=== PATIENT | male | born 1975 | race Caucasian/White ===

== ENCOUNTER 2024-01-28 15:15 | Emergency (ER) | payer OTHER, SELFPAY ==
[2024-01-28 15:25] VITALS: BP 130/91
--- NOTE | 2024-01-28 15:28 | ED.GENMED ---
ED Provider Triage
<Justyna Dickson PA-C - Last Filed: 01/28/24 15:31>
-
Patient seen by provider in Triage?: Seen in Triage
Attestation: A medical screening examination has been initiated by a qualified medical provider. Based on the assessment performed at this time, it has been determined that an emergent medical condition may exist and the patient has been informed
that further medical evaluation and possible additional diagnostic testing may be needed.
HPI: 48yoM here with L sided chest pain x several days. Feels like a funny feeling. Also having L arm numbness. Abnormal EKG at urgent care and sent to ED via ambulance.
GENERAL: Alert , in no apparent distress
EYE: No visual abnormalities.
NECK: Trachea midline
ENT: No visible abnormalities.
LUNGS: No acute respiratory distress
NEUROLOGICAL: Alert and oriented
SKIN: Skin intact. No visible changes.
MUSCULOSKELETAL: Moving extremities normally
PSYCH: Normal and appropriate interaction.
This is a medical evaluation conducted in person to initiate diagnostic evaluation and provide initial therapeutics. Please see further documentation by the treating clinician.
Cardiac labs, EKG, and CXR ordered.
History of Present Illness
<Justyna Dickson PA-C - Last Filed: 01/28/24 15:31>
General
Chief Complaint: Chest Pain
Time Seen by Provider: 01/28/24 18:52
<Sanford Orozco DO - Last Filed: 01/29/24 00:39>
General
Source: patient and records
Exam Limitations: none
Nursing documentation reviewed up to this point in time: agreed with
History of Present Illness
History of Present Illness:
Patient is a 48-year-old male who presents to the emergency department complaining of left-sided chest ache that started 3 nights ago has been intermittent. Patient states it feels like an ache in his left chest and his back then became tight and
he noticed his left upper extremity was following sleep. It does not seem to follow any particular pattern. Patient has continued to exercise get his heart rate up to 1 40-1 60 and has had no symptoms. Patient walks 2 miles and sprints up a hill
at the end and again had no symptoms. Patient was in [place] 1 week ago for 3 days and came back 3 days ago. Patient denies fever or chills, nasal congestion, sore throat or cough. Patient had COVID 2 months ago. Patient denies any palpitations
or shortness of breath. Patient denies any diaphoresis. Patient states that occurred after lunch today and he felt the same way so he went to urgent care who did an EKG and then called the ambulance saying his EKG was abnormal. Patient felt
somewhat tender in the midepigastric region but denies any nausea, vomiting, diarrhea, melena or hematochezia. Patient states he was drinking somewhat excessively while in [place]. Patient denies history of hypertension, diabetes or elevated
cholesterol. Patient is a lifelong non-smoker. Patient's father had an OH at 70 but smoked and had other medical issues. Patient is very active and has not had any exertional symptoms.
Past History
<Justyna Dickson PA-C - Last Filed: 01/28/24 15:31>
Past History
ED Past Medical History: Other (Tongue mass with lymph node dissection)
Social History
Tobacco: Non-smoker
<Sanford Orozco DO - Last Filed: 01/29/24 00:39>
Past History
ED Past Medical History: Negative HTN, Hypercholesterolemia, IDDM or NIDDM
Family History
Family History: CAD; Negative Early CAD
Review of Systems
<Sanford Orozco DO - Last Filed: 01/29/24 00:39>
Review of Systems
All Other Systems: ROS reviewed and negative except as documented in HPI and ROS
Constitutional: Reports no symptoms
EENT: Reports no symptoms
Respiratory: Reports no symptoms
Cardiac: Reports chest pain; Denies diaphoresis, palpitations or syncope
ABD/GI: Reports abdominal pain; Denies nausea, vomiting, diarrhea, constipated, bloody stools, black stools or anorexia
: Reports no symptoms
Musculoskeletal: Reports back pain
Skin: Reports no symptoms
Neurological: Reports no symptoms
Hematologic/Lymphatic: Reports no symptoms
Psychiatric: Reports no symptoms
Phy Exam
<DO Arlene Thomas Last Filed: 01/29/24 00:39>
Physical Exam
Physical Exam:
Physical Exam
General: No apparent distress, alert and appropriate, well nourished, well hydrated
HENT: Normocephalic, supple with no lymphadenopathy, no thyromegaly
Eyes: Clear sclera, conjuctiva without injection
Heart: Regular rhythm and rate. No S3, S4. No murmur. No NVD, bruit
Lungs: No respiratory distress, no stridor, lung sounds clear and equal bilaterally, chest wall symmetrical and nontender. Left upper back pain is reproducible tenderness with movement.
Abdomen: Soft, nontender, no organomegaly, no CVA tenderness, BS good
Neuro: Alert and oriented x 3, CN II - XII intact, no motor focality, no cerebellar dysfunction
Skin: no rash
Psychiatric: well kept. interactive and cooperative
Extremities: No edema, cyanosis, tenderness, Good and equal peripheral pulses.
Scores
<Sanford Orozco DO - Last Filed: 01/29/24 00:39>
Heart Score for Chest Pain Patients
STEMI patient?: No
History: Slightly or Non-Suspicious
ECG: Normal
Age: >45 - <65 years
Risk Factors: No Risk Factors
Troponin: </= Normal Limit
Heart Score for Chest Pain Patients: 1
Heart Score Risk: 2.5% MACE over next 6 weeks
Course
<Justyna Dickson PA-C - Last Filed: 01/28/24 15:31>
Orders/Labs/Results
Orders:
Orders
01/28/24 15:17
Electrocardiogram (*1) Urgent
Reason for Study: Chest Pain
EKG- Treatment ONCE
01/28/24 15:31
CR Chest - 2 Views Urgent
Comment:
Reason For Exam: CP
01/28/24 16:36
CMP [Comprehensive Metabolic Panel] Urgent
Complete Blood Count/With Diff Urgent
Troponin I Urgent
Abnormal Lab Results
01/28/24
16:36
Absolute Neuts (auto) 6.9 H 10^3/uL
(1.4-6.5)
Neutrophils % 77.4 H %
(42.2-75.2)
Lymphocytes % 16.1 L %
(20.5-51.1)
BUN 23 H mg/dl
(9-20)
Glucose 103 H mg/dl
(70-99)
01/28/24 16:36
01/28/24 16:36
Vital Signs
Initial and Last Documented VS:
Initial Vital Signs
Temp Pulse Resp BP Pulse Ox
98.6 F 88 18 130/91 98
01/28/24 15:25 01/28/24 15:25 01/28/24 15:25 01/28/24 15:25 01/28/24 15:25
Last Documented Vital Signs
Temp Pulse Resp BP Pulse Ox
98.6 F 78 17 130/91 97
01/28/24 15:25 01/28/24 18:30 01/28/24 18:30 01/28/24 15:25 01/28/24 18:30
<Sanford Orozco DO - Last Filed: 01/29/24 00:39>
Orders/Labs/Results
Orders:
Orders
01/28/24 15:17
Electrocardiogram (*1) Urgent
Reason for Study: Chest Pain
EKG- Treatment ONCE
01/28/24 15:31
CR Chest - 2 Views Urgent
Comment:
Reason For Exam: CP
01/28/24 16:36
CMP [Comprehensive Metabolic Panel] Urgent
Complete Blood Count/With Diff Urgent
Troponin I Urgent
Abnormal Lab Results
01/28/24
16:36
Absolute Neuts (auto) 6.9 H 10^3/uL
(1.4-6.5)
Neutrophils % 77.4 H %
(42.2-75.2)
Lymphocytes % 16.1 L %
(20.5-51.1)
BUN 23 H mg/dl
(9-20)
Glucose 103 H mg/dl
(70-99)
01/28/24 16:36
01/28/24 16:36
Vital Signs
Initial and Last Documented VS:
Initial Vital Signs
Temp Pulse Resp BP Pulse Ox
98.6 F 88 18 130/91 98
01/28/24 15:25 01/28/24 15:25 01/28/24 15:25 01/28/24 15:25 01/28/24 15:25
Last Documented Vital Signs
Temp Pulse Resp BP Pulse Ox
98.6 F 78 17 130/91 97
01/28/24 15:25 01/28/24 18:30 01/28/24 18:30 01/28/24 15:25 01/28/24 18:30
<Sanford Orozco DO - Last Filed: 01/29/24 00:39>
*Radiology
Radiology exam reviewed: radiology read reviewed (Chest x-ray unremarkable)
*Pulse Oximetry
Patient hypoxic: no
*EKG
Interpreted by ED Provider?: Yes
EKG Intrepretation Date: 01/28/24
EKG Intrepretation Time: 19:21
Interpretation: abnormal
Comparison EKG: no comparison EKG present
Heart Rate: 77
Rate: normal
Rhythm: sinus
[place]: normal axis
Interval: normal interval
QRS Pattern: normal QRS
Ischemia: non-specific ST changes
*Jig Grinder Set Up Operator Interpretation
Rate: normal
Interpretation: normal
Heart Rate: 73
Rhythm: sinus
*Critical Care Note
Total Time (30-74mins, 75-104mins- exclusive of procedures): Not Applicable
<aSnford Orozco DO - Last Filed: 01/29/24 00:39>
Update Note
Update Note:
EKG has minimal ST-T wave abnormalities. I doubt that this is cardiac and probably more anxiety which the patient acknowledges. Given the patient's pulse ox as well as heart rate and EKG I do not believe he has a PE. I do not believe a D-dimer
will add any value. The patient has been lifting weights as he normally does but admits that this feels more muscular. Despite that I will refer the patient to cardiology for further evaluation which may or may not include a stress test.
ED Attending Note
<Justyna Dickson PA-C - Last Filed: 01/28/24 15:31>
-
Portions of this chart may have been created with voice recognition software.� Occasional wrong word or��sound alike� substitutions may have occurred due to the inherent limitations of voice recognition software.
Discharge Plan
Departure
Patient Disposition: Home (Routine Discharge)
Date of Disposition: 01/28/24
Time of Disposition: 19:23
Patient with high blood pressure during this ER visit?: No
Covid-19: Not Applicable
Discharge Problem:
Chest pain
Instructions: Chest Pain CBC Follow Up
Prescriptions:
No Action
lorazepam 0.5 MG tablet
0.5 mg PO ONCE PRN (Reason: anxiety)
paroxetine HCl 20 MG tablet
20 mg PO DAILY
simvastatin 20 MG tablet
20 mg PO DAILY
amoxicillin-pot clavulanate 1 TABLET tablet
1 tab PO Q12
sulfamethoxazole-trimethoprim 1 TABLET tablet
1 tab PO BID Qty: 20 0RF
Referrals:
Parth Barbosa MD [Family Provider] - Follow up in 5-7 days
Activity Restrictions/Additional Instructions:
You may take acetaminophen 1000 mg or ibuprofen 400 mg every 6 hours for discomfort. If any worsening of pain, shortness of breath or feeling your heart race please return immediately.
Interventions
Interventions:
*Risk Screen - Suicide Last Done: 01/28/24 15:25
*General Assessment Last Done: 01/28/24 15:25
*Neglect/Abuse Screening Last Done: 01/28/24 15:25
ED- Fall Risk Assessment Last Done: 01/28/24 18:35
*ED COVID-19 Vaccine History Last Done: 01/28/24 18:35
*Nursing Disposition Last Done: 01/28/24 19:56
ED- Cardiac Assessment Last Done: 01/28/24 18:35
Discharge Date and Time
Discharge Date/Time: 01/28/24 19:57
Print Language: FILIPINO
[2024-01-28 16:46] LABS: % Basophils 0.3 % (0-2); % Eosinophils 0.6 % (0-6); % Immature Granulocytes 0.5 % (0-0.5); % Lymphocytes 16.1 % (20.5-51.1); % Monocytes 5.1 % (1.7-9.3); % Neutrophils 77.4 % (42.2-75.2); Absolute Eosinophils 0.1 10^3/uL (0-0.7); Absolute Lymphocytes 1.4 10^3/uL (1.2-3.4); Absolute Monocytes 0.5 10^3/uL (0.1-0.6); Absolute Neutrophils 6.9 10^3/uL (1.4-6.5); Hematocrit 44.9 % (39.0-52.0); Hemoglobin 15.8 g/dL (13.0-18.0); Mean Corp Hgb Conc. 35.2 g/dL (33.0-37.0); Mean Corpuscular Hgb 29.1 pg (27.0-31.0); Mean Corpuscular Volume 82.7 fL (80.0-94.0); Mean Platelet Volume 9.5 fL (7.4-10.4); Nucleated Red Blood Cells % 0 % (-); Platelet Count 211 10^3/uL (130-400); Red Blood Cell Count 5.43 10^6/uL (4.70-6.10); Red Cell Dist. Width 13.1 % (11.5-14.5); White Blood Cell Count 8.9 10^3/uL (4.8-10.8)
[2024-01-28 17:01] LABS: ALT (SGPT) 41 U/L (0-50); AST (SGOT) 40 U/L (17-59); Alkaline Phosphatase 42 U/L (38-126); Blood Urea Nitrogen 23 mg/dl (9-20); Calcium 9.2 mg/dl (8.4-10.2); Carbon Dioxide 27 mmol/L (22-30); Chloride 101 mmol/L (98-107); Glucose 103 mg/dl (70-99); Potassium 3.9 mmol/L (3.5-5.1); Sodium 141 mmol/L (135-145); Total Bilirubin 0.4 mg/dl (0.2-1.3); Total Protein 7.9 g/dl (6.3-8.2); eGFR > 60.00
[2024-01-28 17:14] LABS: Troponin I < 0.012 ng/ml
== END 2024-01-28 19:57 | disposition home or self-care (01) ==
LOC: EMR 15:15
PROVIDERS: Emergency Medicine; EMERGENCY PHYSICIAN Emergency Medicine; FAMILY PHYSICIAN Family Medicine
DX: R07.89 Other chest pain (principal); M54.9 Dorsalgia, unspecified; R10.13 Epigastric pain; M79.602 Pain in left arm; R94.31 Abnormal electrocardiogram [ECG] [EKG]
CPT/HCPCS: 99283; 71046; 80053; 84484; 85025; 93005